=== PATIENT | male | born 1950 | race Caucasian/White ===

== ENCOUNTER 2025-01-11 10:36 | Emergency (ER) | payer OTHER, SELFPAY ==
[2025-01-11 10:39] VITALS: BP 128/79; PULSE 55; RESP 16; TEMP 36.6; O2SAT 98
--- NOTE | 2025-01-11 10:52 | ED.GENADUL_ITS ---
Discharge Plan Disposition Patient Disposition: Home Condition: Stable Discharge Details Clinical Impression: Bee sting reaction Primary Care Provider: Unknown,Unknown ED Provider: Trini Nguyen Home Meds and New Rx's Prescriptions: New prednisone 20 mg tablet 20 mg PO DAILY 3 Days Qty: 3 0RF Rx Instructions: Take 1 tablet daily for the next 3 days Discharge Instructions Instructions: Insect Bites and Stings ED Additional Instructions: At this time it appears you have a bee sting reaction to your right upper eyelid. You may take Benadryl 1 or 2 tablets every 6-8 hours as needed for increased swelling and/or itching or redness to the eye area this will make you sleepy. You may continue taking the Claritin once daily. Please take an [id number] Pepcid 20 to 40 mg once a day for the next few days. This will help block a histamine receptor also. Please take the prednisone once a day for the next 3 days you were given a tablet here in the emergency department. You may apply ice. Thank you for allowing us to care for you today. Please return to the ER for any worsening swelling redness throat closing, trouble breathing, cough or concerns Discharge Data Discharge Date/Time-TO BE ENTERED AT DEPARTURE: 01/11/25 11:31 HPI General Mode of arrival: ambulatory . Date/Time Provider Initiated Documentation: 01/11/25 10:44 . Limitations to Documentation: no limitations . Information obtained by: patient, RN notes reviewed and old records reviewed . HPI Narrative: 74-year-old male presents to the ER with chief complaint right upper eyelid swelling after being stung by a bee approximately an hour ago. Has had a history of a reaction to a wasp sting which he took Claritin for. He did take Claritin today prior to arrival. He denies any problems breathing other than history of bad lungs. He has no stridor or wheezes cough or runny nose at this time. Related Data Home Medications ?Medication ?Instructions ?Recorded ?Confirmed prednisone 20 mg tablet 20 mg PO DAILY Allergic reac tion 3 01/11/25 days #3 tabs Previous Rx's ?Medication ?Instructions ?Recorded prednisone 20 mg tablet 20 mg PO DAILY Allergic reac tion 3 01/11/25 days #3 tabs Allergies Allergy/AdvReac Type Severity Reaction Status Date / Time No Known Allergies Allergy Verified 01/11/25 11:16 General Stated Complaint: InsectBite BELLA: 4 Review of Systems All systems reviewed & are unremarkable except as noted in HPI and below Eyes Eyes: Reports as per HPI, Denies diplopia, Denies eye discharge, Denies dry eyes, Reports irritation, Denies seeing flashes, Denies photophobia and Reports other (Right upper eyelid swelling after bee sting) ENT Ears, Nose, Mouth, and Throat: Denies lip swelling, Denies sore throat, Denies throat swelling and Denies tongue swelling Cardiovascular Cardiovascular: Denies dyspnea Respiratory Respiratory: Denies chest congestion, Denies cough, Denies dyspnea, Denies stridor and Denies wheezing Allergic/Immunologic Allergic/Immunologic: Denies urticaria, Denies lip swelling, Denies throat swelling, Denies tongue swelling and Denies wheezing Exam Narrative Exam Narrative: Constitutional: Alert and oriented x3. Appears stated age. Normal body habitus. Head: Normocephalic, no trauma. Eyes: Pupils PERRL, Red reflex noted, EOM's intact. Eyelids show small amount of swelling noted to the right upper eyelid, ENT: Bilateral TM's WNL, External ear normal to inspection, no mastoid TTP, swelling, or erythema, Nasal turbinates WNL, no nasal discharge. Normal de ntition, Posterior pharynx WNL, no exudate, no swelling uvula midline speaking in full sentences. Chest: RRR, Normal S1, S2, distal pulses intact. Resp: Lungs clear to auscultation bilaterally, no wheezes, rales, or rhonchi. No stridor. Musculoskeletal: Normal gait, Moves all 4 extremities without difficulty. Skin: No suspicious rashes or lesions. Capillary refill less than 2 sec. Neurologic: Cranial nerves II-XII intact. Alert and oriented x 3. Motor: No deficits noted. Hematologic/Lymphatic: No ecchymosis, no lymphadenopathy. Course Vital Signs Vital signs: Vital Signs Temperature 36.6 C 01/11/25 10:39 Pulse 55 L 01/11/25 10:39 Respiratory Rate 16 01/11/25 10:39 Blood Pressure 128/79 01/11/25 10:39 Pulse Oximetry 98 01/11/25 10:39 Temperature 36.6 C 01/11/25 10:39 Temperature Source Oral 01/11/25 10:39 Pulse 55 L 01/11/25 10:39 Respiratory Rate 16 01/11/25 10:39 Blood Pressure 128/79 01/11/25 10:39 Blood Pressure Position Sitting 01/11/25 10:39 Pulse Oximetry 98 01/11/25 10:39 Pain Level 2 01/11/25 10:39 Medical Decision Making Will give prednisone 20 mg here and 40 mg of Pepcid I did discuss home care with patient and family who verbalized understanding. Patient did take a Claritin prior to arrival. I did also discuss Benadryl 1 or 2 tablets every 6-8 hours as needed if any worsening along with Pepcid which can be bought [id number] and will give 3 days of prednisone. They verbalized understanding and are agreement with the plan. This text was generated using [employer] dictation system, please disregard any oddities of phrase or misspellings. Patient remained hemodynamically stable, alert and oriented no stridor no wheezing no hives no redness of the face no evidence of significant systemic symptoms. PFSH All Active Problems (Updated 01/11/25 @ 11:15 by Trini Nguyen NP) Bee sting reaction (Acute) Social History Smoking risk assessment performed?: No
[2025-01-11] MEDS: Famotidine 20 MG TAB 40 MG PO (11:03)
[2025-01-11] MEDS: predniSONE 20 MG TAB PO (11:03)
== END 2025-01-11 11:31 | disposition home or self-care (01) ==
LOC: ER 11:50
PROVIDERS: Emergency Provider Registered Nurse Emergency
DX: T63.441A Toxic effect of venom of bees, accidental (unintentional), initial encounter (principal); H02.841 Edema of right upper eyelid
CPT/HCPCS: 99282 ×2; J7512